=== PATIENT | male | born 1950 | race Caucasian/White ===

== ENCOUNTER 2022-08-14 09:29 | Inpatient (IN) | payer OTHER ==
--- OUTSIDE RECORDS SUMMARY | 2022-08-14 09:32 | XMS REPORT | Continuity of Care Document ---
:1950 Author Organization [facility] t Address [address] [place] [address] Care Team Providers Name Role Phone Asked, No Pcp Primary Care Physician Unavailable Ayad Vazquez Attending Clinician Unavailable Mir Pascal Attending Clinician Unavailable Shoaib Riddle Attending Clinician Unavailable JESSIE SINGLETON Attending Clinician Unavailable Physician, No Primary or Family Admitting Clinician UnavailFernando Valle Admitting Clinician Unavailable BETY VAUGHN Admitting Clinician Unavailable Payers Payer Name Policy Type Policy Number Effective Date Expiration Date S ource Problems Condition Condition Condition Status Onset Resolution Last Treating Co mments Source Name Details Category Date Date Treatment Clinician Date Increased Increased Disease Active Met hodi frequency frequency 05 st of of 00:00: Hospita urination urination 00 l Transient Transient Disease Active Met hodi elevated elevated [address] [facility] blood blood 00:00: Hospita pressure pressure 00 l Chest pain Chest pain Disease Active 2019- M ethodi at rest at rest 104 st 00:00: Hospita 00 l Status Status Disease Active Methodi epilepticu epilepticu 1 st s s 00:00: Hospita 00 l Acute Acute Disease Recurre Methodi respirator respirator nce 07-17 st y failure y failure 00:00: Hosp rui with with 00 l hypoxia hypoxia 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 07-17 st megaly megaly 00:00: Hospita 00 l Allergies, Adverse Reactions, Alerts Allergy Allergy Status Severity Reaction(s) Onset Inactive Treating Comm ents Source Name Type Date Date Clinician peter DA Active U UNKNOWN [facility] ep[facility] 08-10 [facility] 00:[facility]: [facility] 00 are [facility] No Known DA Active U [facility] Allergie 12-05 [facility] 00:00: e 00 [facility] No Known DA Active U [facility] Allergie - [facility] 00[facility]: e 00 [facility] Social History Social Habit Start Date Stop Date Quantity Comments Source Sex Assigned At [birth year] [facility] 00:00:00 00:00:00 Smoking Status Start Date Stop Date Source Tobacco smoking consumption unknown [facility] Medications Ordered Filled Start Stop Current Ordering Indication Dosage Frequency Signature Comments Components Source Medication Medication Date Date Medication? Clinician (SIG) Name Name No known No No known Metho di medications 07-[address] 03:55: s Hospita 54 l Procedures This patient has no known procedures. Plan of Care Planned Activity Planned Date Details Comments Source Future Scheduled 2022-06-29 COVID-19 VACCINE (#1) [facility] Test 10:37:52 [code = COVID-19 VACCINE (#1)] Future Scheduled 2022-06-29 Hepatitis C screening [facility] Test 10:37:52 (procedure) [code = 648083838] Future Scheduled 2022-06-29 COLONOSCOPY SCREENING [facility] Test 10:37:52 [code = COLONOSCOPY SCREENING] Future Scheduled 2022-06-29 SHINGLES VACCINES (1 Met [facility] Test 10:37:52 of 2) [code = SHINGLES VACCINES (1 of 2)] Future Scheduled 2022-06-29 65+ [facility]CCAL [facility] Test 10:37:52 VACCINE (1 - PCV) [code = 65+ PNEUMOCOCCAL VACCINE (1 - PCV)] Future Scheduled 2022-06-29 INFLUENZA VACCINE Method [facility] Test 10:37:52 [code = INFLUENZA VACCINE] Encounters Start End Encounter Admission Attending Care Care Encounter Source Date/Time Date/Time Type Type Clinicians Facility Department ID 2022-02-12 2022-02-12 Emergency EM Ayad Vazquez [facility] KALPESH [id number] [facility] 07:23:00 13:20:00 60 [facility] 2022-02-12 2022-02-12 Emergency EM Ayad Vazquez HCABM [id number] [facility] 07:23:00 07:23:00 [id number] [facility] 2022-02-08 2022-02-11 Emergency EM Gwyn, HCATB KALPESH [id number] [facility] 19:34:00 22:57:00 Mir 91 [facility] [place] 2022-02-08 2022-02-11 Emergency EM Gwyn HCATB HCATB [id number] [facility] 19:34:00 22:57:00 Mir [id number] [facility] [place] 2022-02-09 2022-02-09 Outpatient Gwyn HCANW REF [id number] [facility] 09:29:00 09:29:00 Mir 48 [facility] 2021-08-10 2021-08-10 Emergency EM Janessa HCATB KALPESH [id number] [facility] 12:30:00 17:49:00 Shoaib 89 [facility] [place] 2019-07-16 2019-07-22 Inpatient ARELI [facility] [id number] [address] [place] 00:00:00 00:00:00 JESSIE [address] Results Test Description Test Time Test Comments Results Result Comments Source BASIC METABOLIC PANEL 2022-02-12 11:42:00 Test Item Value Reference Range Interpretation Comme nts SODIUM (test code = NA) 136 mmol/L 136-145 N POTASSIUM (test code = K) 4.1 mmol/L 3.5-5.1 N CHLORIDE (test code = CL) 102.0 mmol/L 98-107 N CARBON DIOXIDE (test code = 27.0 mmol/L 21-32 N CO2) ANION GAP (test code = GAP) 11.1 10-20 N GLUCOSE (test code = GLU) 104 mg/dL 74-106 N BLOOD UREA NITROGEN (test 19 mg/dL 7-18 H code = BUN) GLOMERULAR FILTRATION RATE > 60 mL/min See_Comment E stimated GFR by using (test code = GFR) Modified M DRD formula.Chronic kidney disease is defined as either kidney d amageor GFR <60 mL/min/1.73 m2 for >3 months. [Automa abisai message] The system [employer] generated this result tra nsmitted reference range : >=60. The reference range was not used to interpret th is result as normal/abnormal . CREATININE (test code = 0.80 mg/dL 0.7-1.3 N CREAT) BUN/CREATININE RATIO (test 22.9 10-20 H code = BUN/CREA) CALCIUM (test code = CA) 9.7 mg/dL 8.5-10.1 N [id number] 11:42:00 Test Item Value Reference Range Interpretation Comments TROPONIN-HS (test 7.590 pg/mL 0-45 N CAUTION: U nits of the code = TROPI) current test m ethodology (pg/mL)differ f rom the prior test meth odology (ng/mL) by a fa ctorof 1000. PROTHROMBIN [id number] 11:32:00 Test Item Value Reference Range Interpretation Comments PROTHROMBIN TIME 11.6 seconds 9.0-14.0 N PATIENT (test code = PTP) INTERNATIONAL NORMAL 1.0 0.8-1.2 N The the rapeutic range RATIO (test code = for oral INR) anticoagulant t herapy formost indicat ions is an internati onal normalized rati o (INR)of between 2.0 and 3.0. The recommended therapeutic INR range for various cli nical situations is l isted below: Clinical Situat ion INR range Pulmonary embol ism treatment (2.0-3.0)Venous thrombosis treatmentVenous thrombosis prophylaxis (hi gh risk surgery)Prevent ion of systemic emboli sm from: Acute myocardial infa rction Valvular heart disease Atrial fibrillation Mechanical pros thetic heart valves (2.5-3.5) IS PATIENT ON ANTICOAGULANTS? NTHROMBOPLASTIN TIME [id number] 11:32:00 Test Item Value Reference Range Interpretation Comments THROMBOPLASTIN TIME PARTIAL 32.1 seconds 23.0-37.0 N (test code = PTT) IS PATIENT ON ANTICOAGULANTS? NCBC W/O [id number] 11:28:00 Test Item Value Reference Range Interpretation Comments WHITE BLOOD CELL (test code = 10.2 K/mm3 4.5-12.5 N WBC) RED BLOOD CELL (test code = 5.04 mill/mm3 4.0-5.8 N RBC) HEMOGLOBIN (test code = HGB) 14.9 gram/dL 13.0-17.5 N HEMATOCRIT (test code = HCT) 44.6 % 42.0-52.0 N MEAN CELL VOLUME (test code = 88.5 fL 80-98 N MCV) MEAN CELL HGB (test code = MCH) 29.6 picogram 27.0-33.0 N MEAN CELL HGB CONCETRATION 33.4 gram/dL 33.0-36.0 N (test code = MCHC) RED CELL DISTRIBUTION WIDTH 13.5 % 11.6-16.2 N (test code = RDW) PLATELET COUNT (test code = 163 K/mm3 150-450 N PLT) MEAN PLATELET VOLUME (test code 9.5 fL 6.7-11.0 N = MPV) - CT C-SPINE W/O [id number] 09:00:00 [facility]Name: MCCLENDONISABEL : 1950 Sex: M Name: ISABEL MCCLENDON [facility] : 1950 Age/S: 71 / M [address] Unit #: [id number] Loc: [place] [address] Phys: Ayad Vazquez MD Acct: [id number] Dis Date: Status: REG ER PHONE #: [phone] Exam Date: 02/12/2022839 FAX #: [phone] Reason: fall EXAMS: CPT CODE: [id number] CT C-SPINE W/O CONTRAST 18275 HISTORY: Seizure TECHNIQUE: Noncontrast 2.[address] of the head.2.[address] of the cervical spine. Sagittal and coronal reformatted images were generated. . Examination acquired within 24 hours of arrival. Automated exposure control for dose reduction. COMPARISON: None FINDINGS: HEAD CT: No lacerations or contusions of the scalp or facial soft tissues. Calvarium and skull base are intact. 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 No effacement of the sulci o r huertas-white matter interface. No acute hemorrhage. No intracranial mass, mass effect, or midline shift. Severe low densities appearance of the paraventricular region noted consistent with nonspecific white matter disease. No hydrocephalus.. No extra-axial fluid collection. Visualized paranasal sinuses are clear. Mastoid air cells and middle ear cavities are clear. Orbital contents are unremarkable. CERVICAL SPINE CT: No acute fracture of the cervical spine. No subluxation. Craniocervical and cervicothoracic articulations are appropriate. Vertebral body heights are preserved. Mild to moderate scattered degenerative changes of the cervical spine. No prevertebral or paraspinal soft tissue abnormality. Visualized posterior fossa contents are grossly unremarkable. Lung apices are clear. IMPRESSION: No acute abnormalities of the head or cervical spine. Location: [facility] PAGE 1 Signed Report (CONTINUED) Name: ISABEL MCCLENDON [facility] : 1950 Age/S: 71 / M [address] Unit #: [id number] Loc: [place] [address] Phys: Ayad Vazquez MD Acct: [id number] Dis Date: Status: REG ER PHONE #: [phone] Exam Date: 02/12/2022 0840 FAX #: [phone] Reason: fall EXAMS: CPT CODE: [id number] CT C-SPINE W/O CONTRAST 48124 (Continued) at 0900 Reported and signed by: Justus Chairez M.D. CC: Ayad Vazquez MD Technologist:Prerna Bloom RT(R)(CT) CTDI: DLP: Trnscb Date/Time: 02/12/2022 (09) [email or web address] Orig Print D/T: S: 02/12/2022 (0904)PAGE 2 Signed Report- CT HEAD/BRAIN W/O [id number] 09:00:00 [facility]Name: ISABEL MCCLENDON : 1950 Sex: M Name: SIABEL MCCLENDON [facility] : 1950 Age/S: 71 / M [address] [facility] Unit #: [id number] Loc: [place] [address] Phys: Ayad Vazquez MD Acct: [id number] Dis Date: Status: REG ER PHONE #:[phone] Exam Date: 02/12/2022 0840 FAX #: [phone] Reason: Seizure EXAMS: CPT CODE: [id number] CT HEAD/BRAIN W/O CONT 01821 HISTORY: Seizure TECHNIQUE: Noncontrast 2.[address] of the head. 2.[address] of the cervical spine. Sagittal and coronal reformatted images were generated. . Examination acquired within 24 hours of arrival. Automated exposure control for dose reduction. COMPARISON: None FINDINGS: HEAD CT: No lacerations or contusions of the scalp or facial soft tissues. Calvarium and skull base are intact. 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 No effacement of the sulcior huertas-white matter interface. No acute hemorrhage. No intracranial mass, mass effect, or midline shift. Severe low densities appearance of the paraventricular region noted consistent with nonspecificwhite matter disease. No hydrocephalus.. No extra-axial fluid collection. Visualized paranasal sinuses are clear. Mastoid air cells and middle ear cavities are clear. Orbital contents are unremarkable. CERVICAL SPINE CT: No acute fracture of the cervical spine. No subluxation. Craniocervical and cervicothoracic articulations are appropriate. Vertebral body heights are preserved. Mild to moderate scattered degenerative changes of the cervical spine. No prevertebral or paraspinal soft tissue abnormality. Visualized posterior fossa contents are grossly unremarkable. Lung apices are clear. IMPRESSION: No acute abnormalities of the head or cervical spine. Location: [facility] PAGE 1 Signed Report (CONTINUED) Name: ISABEL MCCLENDON [facility] : 1950 Age/S: 71 / M [address] [facility] Unit #: [id number] Loc: [place] [address] Phys: Ayad Vazquez MD Acct: [id number] Dis Date: Status: REG ER PHONE #: [phone] Exam Date: 02/12/2022 0840 FAX #: [phone] Reason: Seizure EXAMS: CPT CODE: [id number] CT HEAD/BRAIN W/O CONT 79666 (Continued) [id number] Reported and signed by: Justus Chairez M.D. CC: Ayad Vazquez MD Technologist:Prerna Bloom RT(R)(CT) CTDI: DLP: Trnscb Date/Time: 02/12/2022 (899) [email or web address] Orig Print D/T: S: 02/12/2022 (903) PAGE 2 Signed ReportCOVID 19 Asymptomatic IH AG 2022-02-10 12:25:00 Test Item Value Reference Range Interpretation Comments COVID 19 Asymptomatic NEGATIVE Negative NEGAT MARLY RESULTS IH AG (test code = SHOULD BE TREATED COVNONPUIAG) PRESUMPTIVE ANDCONFIRMED WT IH A MOLECULAR ASSAY , IF NECESSARY FOR PATIENTMANAGEME NT. NEGATIVE RESULT S DO NOT RULE OUT CO VID-19 ANDSHOULD NOT B E USED THE SOLE BAS IS FOR TREATMENT ORPAT IENT MANAGEMENT DECI SIONS, INCLUDING INFEC TION CONTROLDECISION S. NEGATIVE RESULT S SHOULD BE CONSI DERED IN THECONTEXT O F A PATIENT'S RECEN T EXPOSURES, HIST ORY AND THEPRESENCE OF CLINICAL SIGNS AND SYMPTOMS CONSIS TENT WITHCOVID-19. DRUGS OF ABUSE SCREEN [id number] 00:00:00 Test Item Value Reference Range Interpretation Comments UR COCAINE (test code = COCAU) Negative NEGATIVE UR CANABINOIDS (test code = CANU) Negative NEGATIVE UR AMPHETAMINE (test code = AMPHU) Negative NEGATIVE UR BARBITURATE (test code = BARBQLU) Negative NEGATIVE UR BENZODIAZEPINE (test code = Negative NEGATIVE BENZU) METHADONE (test code = METHDU) Negative NEGATIVE PROPOXYPHENE SCREEN (test code = Negative NEGATIVE PROPXSQ) UR OPIATES QUAL (test code = Negative NEGATIVE OPIAQLU) OXYCODONE (test code = OXYCOD) Negative NEGATIVE UR PHENCYCLIDINE (PCP) (test code = Negative NEGATIVE PHENCU) UA RFLX MICR CULT IF [id number] 23:50:00 Test Item Value Reference Range Interpretation Comments UA COLOR (test code = Light-Yellow YELLOW COLU) UA APPEARANCE (test TURBID CLEAR A code = APPU) UA GLUCOSE DIPSTICK NEG MG/DL NEGATIVE (test code = DGLUU) UA BILIRUBIN DIPSTICK NEG NEGATIVE (test code = BILU) UA KETONE DIPSTICK NEG MG/DL NEGATIVE (test code = KETU) UA SPECIFIC GRAVITY 1.014 1.000-1.030 (test code = SGU) UA BLOOD DIPSTICK NEG NEGATIVE (test code = ESTHELA) UA PH DIPSTICK (test 7.0 4.5-8.5 code = MAMTA) UA PROTEIN DIPSTICK NEG MG/DL NEGATIVE (test code = PROU) UA UROBILINOGEN 2.0 EU/dL See_Comment A [Automated message] DIPSTICK (test code = The sy stem which URO) generated this result transmit abisai reference range : <=1.0. The refe rence range was not u sed to interpret th is result as normal/abnormal . UA NITRITE DIPSTICK POSITIVE NEGATIVE A (test code = ALEKSANDR) UA LEUKOCYTE ESTERASE 3+ NEGATIVE A DIPSTICK (test code = LEUU) UA WBC (test code = >100 /HPF 0-3 A WBCU) UA RBC (test code = 3-5 /HPF 0-3 A RBCU) UA WBC CLUMPS (test FEW HPF NONE SEEN A code = WBCUCL) UA BACTERIA (test 4+ /HPF NONE SEEN A code = BACU) UA SQUAMOUS CELLS RARE /HPF NONE-FEW (test code = SQU) UA MUCUS (test code = RARE /LPF NONE-FEW MUCU) Indication for culture: Flank PainSpecimen Description: CLEAN CATCHVALPROIC ACID (DEPAKENE)2022-02-08 22:43:00 Test Item Value Reference Range Interpretation Comments VALPROIC ACID (DEPAKENE) (test 67.3 ug/mL 50.0-100.0 N code = VALP) COMPREHENSIVE METABOLIC [id number] 22:43:00 Test Item Value Reference Range Interpretation Comments SODIUM (test code = 141 mmol/L 136-145 N NA) POTASSIUM (test 4.2 mmol/L 3.4-4.5 N code = K) CHLORIDE (test code 104 mmol/L 98-107 N = CL) CARBON DIOXIDE 31 mmol/l 20-31 N (test code = CO2) GLUCOSE (test code 98 mg/dL 74-106 N = GLU) BLOOD UREA NITROGEN 19 mg/dL 9-23 (test code = BUN) GLOMERULAR >=60 max >60 The estimated FILTRATION RATE estimate glomerular (test code = GFR) filtration rate is computed usingpatient ra ce, age (>18), sex, and serum creatinin e. If anyof the ne eded data elements a re missing the Laboratory negro ot compute an estimation of t he glomerular filtration rate . CREATININE (test 0.92 mg/dL 0.70-1.30 N code = CREAT) TOTAL PROTEIN (test 6.6 g/dL 5.7-8.2 N code = PROT) ALBUMIN (test code 3.3 g/dl 3.4-5.0 L = ALB) CALCIUM (test code 9.4 mg/dL 8.6-10.3 N = CA) BILIRUBIN TOTAL 0.3 mg/dL 0.2-1.1 N (test code = BILT) SGOT/AST (test code < 8 U/L 0-34 N = AST) SGPT/ALT (test code < 7 U/L 10-49 L = ALT) ALKALINE 72 U/L 46-116 N PHOSPHATASE (test code = ALKP) [id number] 22:43:00 Test Item Value Reference Range Interpretation Comments ACETAMINOPHEN (test code = ACET) < 2.0 ug/mL 10-20 L [id number] 22:43:00 Test Item Value Reference Range Interpretation Comments SALICYLATE (test code = ZAN) < 3.0 mg/dL 0.0-30.0 N [id number] 22:43:00 Test Item Value Reference Range Interpretation Comments ALCOHOL (test code = ALC) < 3.0 mg/dL 0.0-80.0 N CBC W/AUTO [id number] 22:22:00 Test Item Value Reference Range Interpretation Comments WHITE BLOOD CELL (test code = WBC) 8.28 K/mm3 5.0-12.0 N RED BLOOD CELL (test code = RBC) 4.26 M/mm3 4.70-6.10 L HEMOGLOBIN (test code = HGB) 12.8 G/DL 14.0-18.0 L HEMATOCRIT (test code = HCT) 38.9 % 38.8-50.0 N MEAN CELL VOLUME (test code = MCV) 91 fL 80-94 N MEAN CELL HGB (test code = MCH) 30.0 PGM 27-31 N MEAN CELL HGB CONCENTRATION (test 32.9 G/DL 33-37 L code = MCHC) RED CELL DISTRIBUTION WIDTH (test 13.6 % 11.6-16.2 N code = RDW) PLATELET COUNT (test code = PLT) 148 K/mm3 130-400 N MEAN PLATELET VOLUME (test code = 9.7 fl 7.4-10.4 N MPV) NEUTROPHIL % (test code = NT%) 63.3 % 43-65 N IMMATURE GRANULOCYTE % (test code 0.4 % 0.0-2.0 N = IG%) LYMPHOCYTE % (test code = LY%) 23.4 % 20.5-45.5 N MONOCYTE % (test code = MO%) 11.6 % 5.5-11.7 N EOSINOPHIL % (test code = EO%) 0.7 % 0.9-2.9 L BASOPHIL % (test code = BA%) 0.6 % 0.2-1.0 N NUCLEATED RBC % (test code = 0.0 % 0-1.0 N NRBC%) NEUTROPHIL # (test code = NT#) 5.24 K/mm3 2.2-4.8 H LYMPHOCYTE # (test code = LY#) 1.94 K/mm3 1.3-2.9 N MONOCYTE # (test code = MO#) 0.96 K/mm3 0.3-0.8 H EOSINOPHIL # (test code = EO#) 0.06 K/MM3 0.0-0.2 N BASOPHIL # (test code = BA#) 0.05 K/mm3 0.0-0.1 N - XR CHEST 1 [id number] 14:02:00 [facility] 1950 Sex: MPatient Name: ISABEL MCCLENDON Unit No: [id number] EXAMS: CPT: [id number] XR CHEST 1 V 54728 CHEST 1 view HISTORY PROVIDED: Cough, hypoxia, bradycardia COMPARISON: No previous chest imaging available for review FINDINGS: Monitoring electrodes are superimposed on the chest. The lungs are clear and fully expanded. There is no infiltrate or atelectasis. The cardiomediastinal silhouette is normal. The heart size isnormal. The pulmonary vascular pattern is not congested. There is no pleural effusion. There is no pneumothorax. CONCLUSION: Normal exam at 1402 Reported and signed by: Milton Gamboa MD CC: Shoaib Riddle DO Technologist: Emilia Sanchez Fluoro Time: DAP (Gy m2): Air Kerma (mGy): Trscr Dt/Tm: 08/10/2021 (1402) by:Nicholas Orig Print D/T: S: 08/10/2021 (1406) BATCH NO: N/A Name: ISABEL MCCLENDON [facility] [place] Phys: Shoaib Gallardo DO [address] : 1950 Age: 71 Sex: M [place] Loc: T.ERS Exam Date: 08/10/2021 Status: REG ER PH: FAX: PAGE 1 Signed ReportBASIC METABOLIC [id number] 13:48:00 Test Item Value Reference Range Interpretation Comments SODIUM (test code 146 mmol/L 136-145 H = NA) POTASSIUM (test 3.4 mmol/L 3.4-4.5 N code = K) CHLORIDE (test 108 mmol/L 98-107 H code = CL) CARBON DIOXIDE 32 mmol/l 20-31 H (test code = CO2) GLUCOSE (test code 163 mg/dL 74-106 H = GLU) BLOOD UREA 26 mg/dL 9-23 H NITROGEN (test code = BUN) GLOMERULAR >=60 max >60 The estimated FILTRATION RATE estimate glomerular (test code = GFR) filtration rate is computed usingpatient ra ce, age (>18), sex, and serum creatinin e. If anyof the neede d data elements a re missing the Laboratory negro ot compute an estimation of t he glomerular filtration rate . CREATININE (test 0.93 mg/dL 0.70-1.30 N code = CREAT) CALCIUM (test code 10.2 mg/dL 8.6-10.3 N = CA) Coronavirus 2018 nCoV [id number] 13:42:00 Test Item Value Reference Range Interpretation Comments Coronavirus 2018 Negative NEGATIVE THE ID NOW COVID-19 EUA HAS nCoV Bedside (test NOT BEEN FDA CLEARED code = ORAPPROVED. IT HAS BEEN [id number]) AUTHORIZED BY THE FDA UNDER ANEMERGENCY USE AUTHORIZATION F OR USE BY AUTHORIZEDLABOR ATORIES AND PATIENT CARE SE TTINGS. THE TEST HAS BEENAU THORIZED ONLY FOR THE DETECTI ON OF NUCLEIC ACID FROMSARS-C oV-2, NOT FOR ANY OTHER VIRUS ES OR PATHOGENS, AND ISONLY AUTHORIZED FOR THE DURATION OF THE DECLARAT ION THATCIRCUMSTANC ES EXIST JUSTIFYING THE AUTHORIZATION OFEMERGENCY USE OF IN VITRO DIAGNOSTIC TEST S FOR DETECTIONAND/OR DIAGNOSIS OF COVID-19 UNDER SECTION 564(B)(1) OF [facility], [place] 360bbb-3 (b)(1), UNLESS THE AUTH ORIZATION ISTERMINATED OR REVOKED SOONER.Negative results should be treat ed as presumptive and , ifinconsistent with clinical signs and sympt oms or necessaryfor pa tient managmeent, osvaldo uld be tested with differenta uthorizd or cleared molecul ar tests. Negative result s donot preclude SARS-C ov-2 infection and s hould not be used asthe sole basis for patient managem ent decisions. Nega tiveresults should be consi dered in the context of a pa tient'srecent exposures, hist ory and presence of cli nical signs andsymptons con sistent with COVID-19. CBC W/AUTO [id number] 13:36:00 Test Item Value Reference Range Interpretation Comments WHITE BLOOD CELL (test code = WBC) 5.67 K/mm3 5.0-12.0 N RED BLOOD CELL (test code = RBC) 4.57 M/mm3 4.70-6.10 L HEMOGLOBIN (test code = HGB) 14.1 G/DL 14.0-18.0 N HEMATOCRIT (test code = HCT) 42.0 % 38.8-50.0 N MEAN CELL VOLUME (test code = MCV) 92 fL 80-94 N MEAN CELL HGB (test code = MCH) 30.9 PGM 27-31 N MEAN CELL HGB CONCENTRATION (test 33.6 G/DL 33-37 N code = MCHC) RED CELL DISTRIBUTION WIDTH (test 12.7 % 11.6-16.2 N code = RDW) PLATELET COUNT (test code = PLT) 201 K/mm3 130-400 N MEAN PLATELET VOLUME (test code = 9.7 fl 7.4-10.4 N MPV) NEUTROPHIL % (test code = NT%) 75.6 % 43-65 H IMMATURE GRANULOCYTE % (test code 1.8 % 0.0-2.0 N = IG%) LYMPHOCYTE % (test code = LY%) 18.0 % 20.5-45.5 L MONOCYTE % (test code = MO%) 3.7 % 5.5-11.7 L EOSINOPHIL % (test code = EO%) 0.2 % 0.9-2.9 L BASOPHIL % (test code = BA%) 0.7 % 0.2-1.0 N NUCLEATED RBC % (test code = 0.0 % 0-1.0 N NRBC%) NEUTROPHIL # (test code = NT#) 4.29 K/mm3 2.2-4.8 N LYMPHOCYTE # (test code = LY#) 1.02 K/mm3 1.3-2.9 L MONOCYTE # (test code = MO#) 0.21 K/mm3 0.3-0.8 L EOSINOPHIL # (test code = EO#) 0.01 K/MM3 0.0-0.2 N BASOPHIL # (test code = BA#) 0.04 K/mm3 0.0-0.1 N
[2022-08-14 09:52] LABS: Urine Blood Trace-intact (Negative); Urine Glucose Negative (Negative); Urine Protein Trace (Negative); Urine Specific Gravity 1.025 (1.005-1.030); Urine pH 6.5 (5.0-7.0)
[2022-08-14 10:02] LABS: Urine Bacteria <20 /HPF (<20); Urine Mucus Slight /HPF (None Seen); Urine WBC Clump Rare /HPF (None Seen)
[2022-08-14 10:10] LABS: Absolute Lymphocytes (CBC) 1.6 K/uL (0.7-4.9); Hematocrit 36.8 % (39.6-49.0); Lymphocytes % 25.3 % (15.3-44.8); MCV 88.6 fL (80-100); RBC Red Blood Cell Count 4.15 M/uL (4.33-5.43)
[2022-08-14 10:30] LABS: Albumin 2.5 g/dL (3.4-5.0); Bilirubin Total 0.3 mg/dL (0.2-1.0); Potassium 3.6 mmol/L (3.5-5.1); Protein, Total 7.6 g/dL (6.4-8.2)
[2022-08-14 10:31] LABS: SARS-COV-2 RT PCR NEGATIVE (NEGATIVE)
--- NOTE | 2022-08-14 10:48 | RAD REPORT ---
EXAM DESCRIPTION: RAD - Chest Single View - 08/14/2022 10:35 am CLINICAL HISTORY: hypoxia Chest pain. COMPARISON: No comparisons FINDINGS: Portable technique limits examination quality. The lungs are mildly emphysematous but grossly clear. The heart is normal in size. No displaced fract ures. IMPRESSION: No acute intrathoracic process suspected.
[2022-08-14 10:53] LABS: Protime INR 1.08
[2022-08-14] MEDS ORDERED: CEFTRIAXONE 1000 MG/VIAL ONE (10:59)
--- NOTE | 2022-08-14 11:33 | RAD REPORT ---
EXAM DESCRIPTION: CT - Chest For Pe Angio - 08/14/2022 11:18 am CLINICAL HISTORY: Chest pain. hypoxemia, rule out PE COMPARISON: No comparisons TECHNIQUE: CT angiogram of the pulmonary arteries was performed with MIP. All CT scans are performed using dose optimization technique as appropriate and may include automated exposure control or mA/KV adjustment according to patient size. FINDINGS: No evidence of pulmonary thromboembolism. No acute aortic finding demonstrated. Mild COPD is present with atelectasis in both posterior lung bases. No significant pericardial or pleural fluid. No concerning bony finding. IMPRESSION: No evidence of pulmonary thromboembolism. Mild COPD with atelectasis in both lung bases.
--- NOTE | 2022-08-14 12:01 | ER ---
Nurse's Notes [facility] Name: Marcus Woodruff Age: 72 yrs Sex: Male : 1950 Arrival Date: 08/14/2022 Time: 09:32 Bed 18 Private MD: Diagnosis: UTI/ Urinary tract infection, site not specified;Hypoxemia Presentation: 08/14 10:02 Chief complaint: EMS states: toned out to [facility] for low O2 - upon arrival ld1 to encino, patient SpO2 87% on concentrator. Upon arrival to ER pt was 98% on 6L NC. Coronavirus screen: At this time, the client does not indicate any symptoms associated with coronavirus-19. Ebola Screen: No symptoms or risks identified at this time. Initial Sepsis Screen: Does the patient meet any 2 criteria? No. Patient's initial sepsis screen is negative. Does the patient have a suspected source of infection? No. Patient's initial sepsis screen is negative. Risk Assessment: Do you want to hurt yourself or someone else? Patient reports no desire to harm self or others. Onset of symptoms was August 14, 2022 at 10:05. 10:02 Method Of Arrival: EMS: [facility] ld1 10:02 Acuity: OLYA 3 ld1 Triage Assessment: 10:05 General: Appears in no apparent distress. comfortable, Behavior is calm, cooperative, ld1 appropriate for age. Pain: Denies pain. EENT: No signs and/or symptoms were reported regarding the EENT system. Neuro: Level of Consciousness is awake, alert, obeys commands, Oriented to person. Cardiovascular: Capillary refill < 3 seconds Patient's skin is warm and dry. Rhythm is sinus rhythm. Respiratory: Reports shortness of breath Airway is patent Respiratory effort is even, unlabored, Onset: The symptoms/episode began/occurred 3-4 days ago, the patient has mild shortness of breath. GI: Abdomen is round non-distended. : No signs and/or symptoms were reported regarding the genitourinary system. Derm: No signs and/or symptoms reported regarding the dermatologic system. Musculoskeletal: No signs and/or symptoms reported regarding the musculoskeletal system. Historical: - Allergies: 10:05 Trileptal; ld1 - Home Meds: 10:05 citalopram 20 mg tab 1 tab once daily [Active]; divalproex 500 mg oral Tb24 1 tab once ld1 daily [Active]; lactulose 10 gram/15 mL (15 mL) Oral soln [Active]; levetiracetam 500 mg oral Tb24 1 tab once daily [Active]; levothyroxine 50 mcg cap 1 cap once daily [Active]; montelukast 10 mg oral tab [Active]; omeprazole 20 mg Oral cpDR 1 cap once daily [Active]; - PMHx: 10:05 CVA; GERD; Schizophrenia; Dementia; Hypothyroidism; Depressive disorder; Seizure; TBI; ld1 - Immunization history:: Adult Immunizations up to date, Client reports receiving the 2nd dose of the Covid vaccine. - Social history:: Smoking status: Patient denies any tobacco usage or history of. Patient/guardian denies using alcohol. - Family history:: not pertinent. - Hospitalizations: : No recent hospitalization is reported. Screenin:11 [facility] ED Fall Risk Assessment (Adult) History of falling in the last 3 months, ld1 including since admission No falls in past 3 months (0 pts). Abuse screen: Denies threats or abuse. Denies injuries from another. Nutritional screening: No deficits noted. Tuberculosis screening: No symptoms or risk factors identified. Assessment: 10:11 Reassessment: See triage assessment. Received pt from EMS - soiled. Changed linen and ld1 clean patient of incontinence. Cardiovascular: Capillary refill < 3 seconds Patient's skin is warm and dry. Respiratory: Airway is patent Respiratory effort is even, unlabored, Breath sounds are clear bilaterally. 10:11 Cardiovascular: Rhythm is sinus rhythm. ld1 18:25 Reassessment: patient brief changed x 2 nurse. db Vital Signs: 10:02 BP 129 / 67; Pulse 60; Resp 18; Temp 97.7(O); Pulse Ox 95% on 6 lpm NC; Weight 82 kg; ld1 Height 5 ft. 8 in. (172.72 cm); Pain 0/10; 10:47 BP 111 / 77; Pulse 62; Resp 18; Pulse Ox 95% on 6 lpm NC; Pain 0/10; ld1 11:42 BP 115 / 75; Pulse 57; Resp 18; Pulse Ox 94% on 6 lpm NC; ld1 12:55 BP 92 / 60; Pulse 73; Resp 20; Pulse Ox 100% on Nebulizer Mask; ld1 15:10 BP 117 / 69; Pulse 65; Resp 30; Pulse Ox 94% on 2 lpm NC; ld1 17:13 BP 115 / 61; Pulse 60; Resp 28; Pulse Ox 99% on 3 lpm NC; ld1 17:59 BP 147 / 73; Pulse 66; Resp 18; Pulse Ox 97% on 2 lpm NC; ld1 10:02 Body Mass Index 27.49 (82.00 kg, 172.72 cm) ld1 ED Course: 09:32 Patient arrived in ED. ld1 09:32 Andrés Garcia MD is Attending Physician. rn 10:02 Urine Culture Sent. ld1 10:02 Urine Microscopic Only Sent. ld1 10:02 Blood Culture Adult (2) Sent. ld1 10:02 COVID-19/FLU A+B Sent. ld1 10:05 Triage completed. ld1 10:05 Arm band placed on right wrist. ld1 10:11 No provider procedures requiring assistance completed. Inserted saline lock: 20 gauge ld1 in right forearm, using aseptic technique. Blood collected. 10:11 Patient has correct armband on for positive identification. Placed in gown. Bed in low ld1 position. Call light in reach. Side rails up X2. monitor car operator on. Pulse ox on. NIBP on. Door closed. Noise minimized. Warm blanket given. Cleaned of incontinence. Linen changed. 10:37 Chest Single View XRAY In Process Unspecified. EDMS 10:47 Madelaine Stewart, ANEUDY is Primary Nurse. ld1 11:20 CT Chest For PE Angio In Process Unspecified. EDMS 11:41 Cleaned of incontinence. Linen changed. ld1 12:00 Robert Perla MD is Hospitalizing Provider. rn 12:21 Zheng Torres is Hospitalizing Provider. rn 18:17 Patient admitted, IV remains in place. ld1 Administered Medications: 10:58 Drug: Rocephin (cefTRIAXone) 1 grams Route: IV; Rate: calculated rate; Site: right ld1 forearm; 12:53 Follow up: Response: No adverse reaction ld1 12:40 Drug: Xopenex (levalbuterol) 1.25 mg Route: Inhalation; ld1 12:53 Follow up: Response: No adverse reaction ld1 Medication: 10:11 VIS not applicable for this client. ld1 Outcome: 12:00 Decision to Hospitalize by Provider. rn 18:16 Admitted to Med/surg accompanied by tech, via stretcher, room 420, with chart, Report ld1 called to ANEUDY Jacques 18:16 Condition: stable 18:16 Instructed on the need for admit. 18:26 Patient left the ED. ld1 Signatures: Dispatcher [employer] EDAndrés Gillis MD MD rn Dibbern, Lauren, RN RN ld1 Raine Landa RN RN db
--- NOTE | 2022-08-14 12:01 | EDPHYS ---
Physician Documentation [facility] Name: Marcus Woodruff Age: 72 yrs Sex: Male : 1950 Arrival Date: 08/14/2022 Time: 09:32 Bed 18 Private MD: ED Physician Andrés Garcia HPI: 08/14 09:43 This 72 yrs old Male presents to ER via Unassigned with complaints of Shortness Of rn Breath. 09:43 The patient has shortness of breath at rest. Onset: The symptoms/episode began/occurred rn at an unknown time. Duration: The symptoms are continuous. The patient's shortness of breath is aggravated by nothing, is alleviated by application of supplemental oxygen. Associated signs and symptoms: Pertinent positives: fever, Pertinent negatives: hemoptysis, vomiting. Severity of symptoms: At their worst the symptoms were mild in the emergency department the symptoms are unchanged. It is unknown whether or not the patient has had similar symptoms in the past. The patient has not recently seen a physician. Pt [facility] by EMS[facility] for [facility] fever, low O2, was 87% on concentrator. Pt with previous TBI and left sided hemiparesis. . Historical: - Allergies: 10:05 Trileptal; ld1 - Home Meds: 10:05 citalopram 20 mg tab 1 tab once daily [Active]; divalproex 500 mg oral Tb24 1 tab once ld1 daily [Active]; lactulose 10 gram/15 mL (15 mL) Oral soln [Active]; levetiracetam 500 mg oral Tb24 1 tab once daily [Active]; levothyroxine 50 mcg cap 1 cap once daily [Active]; montelukast 10 mg oral tab [Active]; omeprazole 20 mg Oral cpDR 1 cap once daily [Active]; - PMHx: 10:05 CVA; GERD; Schizophrenia; Dementia; Hypothyroidism; Depressive disorder; Seizure; TBI; ld1 - Immunization history:: Adult Immunizations up to date, Client reports receiving the 2nd dose of the Covid vaccine. - Social history:: Smoking status: Patient denies any tobacco usage or history of. Patient/guardian denies using alcohol. - Family history:: not pertinent. - Hospitalizations: : No recent hospitalization is reported. ROS: 09:43 Constitutional: Negative for fever, chills, and weight loss, Eyes: Negative for injury, rn pain, redness, and discharge, ENT: Negative for injury, pain, and discharge, Cardiovascular: Negative for chest pain, palpitations, and edema, Respiratory: Negative for wheezing, and pleuritic chest pain, Abdomen/GI: Negative for abdominal pain, nausea, vomiting, diarrhea, and constipation, Back: Negative for injury and pain, MS/Extremity: Negative for injury and deformity, Skin: Negative for injury, rash, and discoloration, Neuro: Negative for headache, numbness, tingling, and seizure. Exam: 09:43 Constitutional: This is a well developed, well nourished patient who is awake, alert, rn and in no acute distress. Head/Face: Normocephalic, atraumatic. ENT: dry MM Cardiovascular: Regular rate and rhythm. No pulse deficits. Respiratory: + diminished breath sounds bilateral bases Abdomen/GI: Soft, non-tender Skin: Warm, dry MS/ Extremity: Pulses equal, no cyanosis. Neuro: Awake and alert, GCS 15 09:57 ECG was reviewed by the Attending Physician. rn Vital Signs: 10:02 BP 129 / 67; Pulse 60; Resp 18; Temp 97.7(O); Pulse Ox 95% on 6 lpm NC; Weight 82 kg; ld1 Height 5 ft. 8 in. (172.72 cm); Pain 0/10; 10:47 BP 111 / 77; Pulse 62; Resp 18; Pulse Ox 95% on 6 lpm NC; Pain 0/10; ld1 11:42 BP 115 / 75; Pulse 57; Resp 18; Pulse Ox 94% on 6 lpm NC; ld1 12:55 BP 92 / 60; Pulse 73; Resp 20; Pulse Ox 100% on Nebulizer Mask; ld1 15:10 BP 117 / 69; Pulse 65; Resp 30; Pulse Ox 94% on 2 lpm NC; ld1 17:13 BP 115 / 61; Pulse 60; Resp 28; Pulse Ox 99% on 3 lpm NC; ld1 17:59 BP 147 / 73; Pulse 66; Resp 18; Pulse Ox 97% on 2 lpm NC; ld1 10:02 Body Mass Index 27.49 (82.00 kg, 172.72 cm) ld1 MDM: 09:33 Patient medically screened. rn 09:57 Differential diagnosis: Anemia Myocardial Infarction pneumonia, Pneumothorax pulmonary rn edema, reactive airway disease, Sepsis. 11:58 Data reviewed: vital signs, nurses notes, lab test result(s), EKG, radiologic studies, rn CT scan, plain films, and as a result, I will admit patient. Consideration of Admission/Observation Patient was admitted/placed on observation. Management of patient was discussed with the following: Hospitalist: Discussed case and admission with hospitalist. . Independent interpretation of the following test(s) in the Emergency Department EKG: See my EKG interpretation above X-Ray: My interpretation is CXR neg for pneumonia. Counseling: I had a detailed discussion with the patient and/or guardian regarding: the historical points, exam findings, and any diagnostic results supporting the discharge/admit diagnosis, lab results, radiology results, the need for further work-up and treatment in the hospital. ED course: Pt with neg CXR and CT PE, could be COPD/emphysema. + UTI. Will admit for IV abx and further care/evaluation.. 08/14 09:33 Order name: Blood Culture Adult (2) rn 08/14 09:33 Order name: CBC with Diff; Complete Time: 10:48 rn 08/14 09:33 Order name: CMP; Complete Time: 10:48 rn 08/14 09:33 Order name: Lactate w/ 2H reflex if indic.; Complete Time: 10:48 rn 08/14 09:33 Order name: Protime (+inr); Complete Time: 10:53 rn 08/14 09:33 Order name: Ptt, Activated; Complete Time: 10:53 rn 08/14 09:33 Order name: Urine Culture rn 08/14 09:33 Order name: Urine Microscopic Only; Complete Time: 10:48 rn 08/14 09:33 Order name: COVID-19/FLU A+B; Complete Time: 10:48 rn 08/14 09:52 Order name: Glucose, Ancillary Testing; Complete Time: 10:48 EDAR 08/14 09:52 Order name: Urine Dipstick-Ancillary; Complete Time: 10:48 EDAR 08/14 13:23 Order name: Magnesium EDMS 08/14 13:23 Order name: Phosphorus EDMS 08/14 13:23 Order name: T4 Free EDMS 08/14 09:33 Order name: Chest Single View XRAY; Complete Time: 10:48 rn 08/14 09:33 Order name: EKG; Complete Time: 09:34 rn 08/14 09:33 Order name: Accucheck; Complete Time: 10:00 rn 08/14 09:33 Order name: Cardiac monitoring; Complete Time: 10:00 rn 08/14 09:33 Order name: Cath; Complete Time: 10:02 rn 08/14 10:54 Order name: CT Chest For PE Angio; Complete Time: 11:38 rn 08/14 13:23 Order name: Heart Healthy EDAR 08/14 13:23 Order name: Thyroid Stimulating Hormone EDAR 08/14 13:23 Order name: Urinalysis EDAR 08/14 13:23 Order name: Basic Metabolic Panel EDAR 08/14 13:23 Order name: Basic Metabolic Panel EDAR 08/14 13:23 Order name: CBC with Automated Diff EDMS 08/14 13:23 Order name: CBC with Automated Diff EDMS 08/14 17:47 Order name: Basic Metabolic Panel EDAR 08/14 09:33 Order name: EKG - Nurse/Tech; Complete Time: 10:00 rn 08/14 09:33 Order name: IV Saline Lock - Large Bore; Complete Time: 10:02 rn 08/14 09:33 Order name: Labs collected and sent; Complete Time: 10:02 rn 08/14 09:33 Order name: O2 Per Protocol; Complete Time: 10:02 rn 08/14 09:33 Order name: O2 Sat Monitoring; Complete Time: 10:02 rn 08/14 09:33 Order name: Urine Dipstick-Ancillary (obtain specimen); Complete Time: 10: rn 08/14 09:33 Order name: Vital Signs; Complete Time: 10:02 rn EC:57 Rate is 66 beats/min. Rhythm is regular. QRS Pedro is Normal. CT interval is normal. QRS rn interval is normal. QT interval is normal. No Q waves. T waves are Normal. No ST changes noted. Clinical impression: Normal ECG. Interpreted by me. Reviewed by me. Administered Medications: 10:58 Drug: Rocephin (cefTRIAXone) 1 grams Route: IV; Rate: calculated rate; Site: right ld1 forearm; 12:53 Follow up: Response: No adverse reaction ld1 12:40 Drug: Xopenex (levalbuterol) 1.25 mg Route: Inhalation; ld1 12:53 Follow up: Response: No adverse reaction ld1 Disposition Summary: 08/14/22 12:00 Hospitalization Ordered Hospitalization Status: Observation rn Location: Telemetry/MedSurg (observation) rn Condition: Stable rn Problem: new rn Symptoms: have improved rn Bed/Room Type: Standard rn Provider: Zheng Torres(08/14/22 12:21) rn Room Assignment: [facility](08/14/22 18:11) bd Diagnosis - UTI/ Urinary tract infection, site not specified rn - Hypoxemia rn Forms: - Medication Reconciliation Form rn - SBAR form rn Signatures: Dispatcher [employer] EDMita Arellano Roman, MD MD rn Dibbern, Lauren, RN RN ld1 Corrections: (The following items were deleted from the chart) 12:21 12:00 Robert Perla rn rn 18:11 12:00 jaylon stapleton
[2022-08-14] MEDS ORDERED: LEVALBUTEROL 1.25 MG/3 ML NEB ONE (12:37)
[2022-08-14] MEDS ORDERED: HYDROCODONE/APAP 5/325 MG TAB PO PRN (13:17)
[2022-08-14] MEDS ORDERED: ACETAMINOPHEN 325 MG TABLET PO PRN (13:17)
[2022-08-14] MEDS ORDERED: ONDANSETRON 4 MG/2 ML VIAL IV PRN (13:20)
[2022-08-14] MEDS: ALBUTEROL 2.5 MG/3 ML NEB SOL NEB SCH ×2 (14:00→20:00)
[2022-08-14] MEDS: IPRATROPIUM BROM 0.5MG/2.5ML NEB SCH ×2 (14:00→20:00)
--- NOTE | 2022-08-14 16:09 | P.HP ---
Certification for Inpatient Patient admitted to: Observation With expected LOS: <2 Midnights Patient will require the following post-hospital care: None Practitioner: I am a practitioner with admitting privileges, knowledge of patient current condition, hospital course, and medical plan of care. Services: Services provided to patient in accordance with Admission requirements found in Title 42 Section 412.3 of the Code of Federal Regulations Patient History Date of Service: 08/14/22 Reason for admission: SOB History of Present Illness: Patient is a 72-year-old male with a past medical history significant for CVA, GERD, schizophrenia, dementia, depression, seizure, TBI, hypothyroidism who presents with complaint of shortness of breath. [facility] a [facility]. Patient alert and oriented x1. Patient is confused and unable to provide any history. shelter staff noted that patient was having shortness of breath and his O2 sat was in the 80s. No other signs or symptoms reported. Symptoms are aggravated or relieved by nothing. Patient was sent to the ER for medical evaluation. Of note, patient was noted to have diarrhea x2 in the ER as well as episodes of coughing. - Past Medical/Surgical History -: CVA -: GERD -: Schizophrenia -: Dementia -: Depression -: Seizures -: TBI -: Hypothyroidism. Past Surgical History: Reviewed- Non-Contributory - Family History Family History: Reviewed- Non-Contributory - Social History Smoking Status: Unknown if ever smoked Alcohol use: No CD- Drugs: No Place of Residence: Longterm Review of Systems is unable to be obtained (Patient is confused.) Physical Examination - Physical Exam General: Alert, In no apparent distress, Oriented x1, Demented, Confused HEENT: Atraumatic, PERRLA, Mucous membr. moist/pink, EOMI, Sclerae nonicteric Neck: Supple, 2+ carotid pulse no bruit, No LAD, Without JVD or thyroid abnormality Respiratory: Diminished Cardiovascular: No edema, Regular rate/rhythm, Normal S1 S2 Capillary refill: <2 Seconds Gastrointestinal: Normal bowel sounds, Soft and benign, Non-distended, No tenderness Musculoskeletal: No clubbing, No swelling, No contractures, No tenderness Integumentary: No rashes, No tenderness/swelling, No erythema Neurological: Normal speech, Normal tone, Normal affect Lymphatics: No axilla or inguinal lymphadenopathy - Studies Laboratory Data (last 24 hrs) 08/14/22 09:57: PT 11.9, INR 1.08, APTT 31.7 08/14/22 09:57: Sodium 149 H, Potassium 3.6, BUN 23 H, Creatinine 1.04, Glucose 106, Total Bilirubin 0.3, AST 26, ALT 27, Alkaline Phosphatase 41 L 08/14/22 09:57: WBC 6.30, Hgb 12.3 L D, Hct 36.8 L, Plt Count 193 Assessment and Plan - Plan --Acute COPD exacerbation. Mild COPD noted on imaging. Patient placed on steroids, neb treatment with albuterol\Atrovent and O2 therapy. Continue supportive care. --UTI POA. Continue antibiotics. Urine cultures pending. --Anemia of chronic disease. H&H stable. We will continue to monitor hemoglobin and transfuse if less than 7.0. --CKD 2. Stable. We will continue to monitor renal functions. -- History of CVA. Continue aspirin. --Dementia. Patient at baseline. Continue supportive care. --GERD. Patient placed on Protonix. --Depression\history of schizophrenia. Continue home medications. --History of TBI. Continue supportive care. --History of seizures. Seizure precautions. Continue home medication. --Hypothyroidism. Continue home medication. --Diarrhea. Stool studies pending to rule out any infectious process. Continue supportive care. --Hypernatremia. Repeat BMP pending. Treatment based on results. Continue supportive care. --DVT prophylaxis with Lovenox subQ. Discharge Plan: Home Plan to discharge in: 48 Hours - Advance Directives Does patient have a Living Will: No Does patient have a Durable POA for Healthcare: No - Code Status/Comfort Care Code Status Assessed: Yes Physician Review: Patient Assessed, Agree with Above Assessment and Plan Critical Care: No
[2022-08-14] MEDS ORDERED: SODIUM CHLORIDE 0.9% 10ML INJ IV PRN (16:22)
[2022-08-14] MEDS ORDERED: PANTOPRAZOLE 40 MG INJ IVP SCH (17:30)
[2022-08-14 17:46] LABS: Potassium 3.6 mmol/L (3.5-5.1)
[2022-08-14 17:57] LABS: Magnesium 2.3 mg/dL (1.6-2.4); Phosphorus 2.9 mg/dL (2.5-4.9); Thyroid Stimulating Hormone 2.19 uIU/mL (0.358-3.740)
[2022-08-14] MEDS: ENOXAPARIN 40 MG/0.4 ML SQ SCH (18:44)
[2022-08-14] MEDS: ASPIRIN 81 MG CHEWABLE TABLET PO SCH (18:45)
[2022-08-14] MEDS: METHYLPREDNISOLONE 40 MG INJ IV SCH (18:45)
[2022-08-14 23:26] VITALS: BMI 27.4
[2022-08-15] MEDS: METHYLPREDNISOLONE 40 MG INJ IV SCH ×3 (00:45→16:34)
[2022-08-15] MEDS: IPRATROPIUM BROM 0.5MG/2.5ML NEB SCH ×4 (01:50→19:40)
[2022-08-15] MEDS: ALBUTEROL 2.5 MG/3 ML NEB SOL NEB SCH ×4 (01:50→19:40)
[2022-08-15 03:59] LABS: Absolute Lymphocytes (CBC) 0.7 K/uL (0.7-4.9); Hematocrit 35.6 % (39.6-49.0); Lymphocytes % 10.8 % (15.3-44.8); MCV 89.2 fL (80-100); MPV 7.6 fL (7.6-11.3); RBC Red Blood Cell Count 3.99 M/uL (4.33-5.43)
[2022-08-15 04:17] LABS: Potassium 4.2 mmol/L (3.5-5.1)
--- NOTE | 2022-08-15 07:08 | P.PN ---
Date of Service: 08/15/22 Subjective: states he feels "ok", not elaborating only stating a few words and hsi name ROS: A complete review of systems was performed and is negative except as mentioned above Physical Exam: Gen: NAD, AOx1 HEENT: normal conjunctiva, sclera anicteric CV: regular rate & rhythm, no edema Pulm: non-labored respirations, diminished bilaterally with [place], on 4L NC Abd: soft, non-tender, non-distended Neuro: weak speech, oriented x, confused/dementia; generalized weakness vitals reviewed Problem List acute hypoxemic respiratory failure secondary to acute on chronic copd exacerbation UTI, present on admission anemia of chronic diseasxe CKD2 h/o CVA CKD2 Dementia h/o CVA GERD h/o TBI h/o Seizures Hypothyroidism Hypernatremia CTA negative for pneumonia, no PE mild COPD changes noted on CT; pt short of breath, with wheeze on exam continue COPD treatment - nebs, O2, azithro continue home meds -aspirin, keppra, synthroid repeat labs in AM UA with pyuria/bacteruria; urine culture pending continue empiric rocephin blood cultures: 07/19 with [facility]; pending repeat blood cultures suspect contaminant VTE: lovenox Code: full Dispo: back to shelter, ~2-3 days
[2022-08-15] MEDS ORDERED: SODIUM CHLORIDE 0.9% 10ML INJ IV PRN (08:08)
[2022-08-15] MEDS: levETIRAcetam 500 MG TAB PO SCH ×2 (08:49→22:08)
[2022-08-15] MEDS: ASPIRIN 81 MG CHEWABLE TABLET PO SCH (08:49)
[2022-08-15] MEDS: ENOXAPARIN 40 MG/0.4 ML SQ SCH (08:49)
[2022-08-15] MEDS: CEFTRIAXONE 1,000 MG in NA CHLORIDE 0.9% 50 ML IVPB SCH (08:50)
[2022-08-15] MEDS: PANTOPRAZOLE 40MG TABLET PO SCH (09:03)
[2022-08-15] MEDS ORDERED: VANCOMYCIN 2 GM in NA CHLORIDE 0.9% 500 ML IVPB ONE (11:00)
--- NOTE | 2022-08-15 16:59 | EKG ---
Test Date: 2022-08-14 Test Time: 09:55:14 Room Service Food Server: CM MEASUREMENT RESULTS: Intervals: Rate: 66 NH: 128 QRSD: 82 QT: 452 QTc: 473 [place]: P: 43 NH: 128 QRS: 74 T: 60 INTERPRETIVE STATEMENTS: Normal sinus rhythm Normal ECG No previous ECG available for comparison Electronically Signed On 08-15-22 16:55:10 PLANT QUALITY MANAGER by Jose Banks
[2022-08-15] MEDS: MONTELUKAST 10 MG TAB PO SCH (22:04)
[2022-08-15] MEDS: RISPERIDONE 0.25 MG TABLET PO SCH (22:04)
[2022-08-16] MEDS: METHYLPREDNISOLONE 40 MG INJ IV SCH ×3 (01:05→16:17)
[2022-08-16] MEDS: ALBUTEROL 2.5 MG/3 ML NEB SOL NEB SCH ×4 (02:20→20:20)
[2022-08-16] MEDS: IPRATROPIUM BROM 0.5MG/2.5ML NEB SCH ×4 (02:20→20:20)
[2022-08-16 03:49] LABS: Absolute Lymphocytes (CBC) 0.6 K/uL (0.7-4.9); Lymphocytes % 6.1 % (15.3-44.8); MCV 88.5 fL (80-100); MPV 7.7 fL (7.6-11.3); RBC Red Blood Cell Count 3.73 M/uL (4.33-5.43)
[2022-08-16 04:00] LABS: Magnesium 2.5 mg/dL (1.6-2.4); Potassium 3.9 mmol/L (3.5-5.1)
[2022-08-16] MEDS: PANTOPRAZOLE 40MG TABLET PO SCH (05:46)
[2022-08-16] MEDS: LEVOTHYROXINE SOD 0.05 MG TABLET PO SCH (05:46)
--- NOTE | 2022-08-16 07:22 | P.PN ---
Date of Service: 08/16/22 Subjective: more alert/awake states he feels good and wants to go home afebrile on oxygen supplementation, improving ROS: A complete review of systems was performed and is negative except as mentioned above Physical Exam: Gen: NAD, AOx1 HEENT: normal conjunctiva, sclera anicteric CV: regular rate & rhythm, no edema Pulm: non-labored respirations, diminished bilaterally with wheeze, on 2L NC Abd: soft, non-tender, non-distended Neuro: weak speech, oriented x1, confused/dementia; generalized weakness vitals reviewed Problem List acute hypoxemic respiratory failure secondary to acute on chronic copd exacerbation UTI, present on admission anemia of chronic disease CKD2 Dementia GERD h/o CVA h/o TBI h/o Seizures Hypothyroidism Hypernatremia CTA negative for pneumonia, no PE mild COPD changes noted on CT; pt short of breath, with wheeze on exam continue COPD treatment - nebs, O2, azithro, steroids pulm consulted continue home meds -aspirin, keppra, synthroid UA with pyuria/bacteruria; urine culture pending unable to get accurate history continue empiric rocephin f/u culture blood cultures: 07/19 with [facility]; pending repeat blood culture without growth suspect contaminant no other obvious source of infection VTE: lovenox Code: full [facility]po[facility], ~1-2 days
[2022-08-16] MEDS ORDERED: CEFTRIAXONE 1000 MG/VIAL ONE (07:39)
[2022-08-16] MEDS ORDERED: NA CHLORIDE 0.9% 50 ML ONE (07:40)
[2022-08-16] MEDS: CEFTRIAXONE 1,000 MG in NA CHLORIDE 0.9% 50 ML IVPB SCH (08:05)
[2022-08-16] MEDS: levETIRAcetam 500 MG TAB PO SCH ×2 (08:07→20:56)
[2022-08-16] MEDS: ENOXAPARIN 40 MG/0.4 ML SQ SCH (08:07)
[2022-08-16] MEDS: ASPIRIN 81 MG CHEWABLE TABLET PO SCH (08:08)
[2022-08-16] MEDS ORDERED: VANCOMYCIN 1.75 GM in NA CHLORIDE 0.9% 500 ML IVPB SCH (11:00)
--- NOTE | 2022-08-16 15:57 | P.CNS ---
Date of Consult: 08/16/22 Chief Complaint: SOB History of Present Illness: Age 72 multiple med prob,s aw SOB Pt non verbal, [place] resident. Low sat's. Stable Allergies oxcarbazepine [From Trileptal] Allergy (Verified 08/14/22 19:33) Hives/Rash Home Medications: Lactulose [Cephulac*] 20 gm PO DAILY 08/15/22 Levothyroxine [Synthroid*] 50 mcg PO [id number] 08/15/22 Montelukast [Singulair*] 10 mg PO BEDTIME 08/15/22 Omeprazole 20 mg PO DAILY 08/15/22 Risperidone [Risperdal] 0.25 mg PO BEDTIME 08/15/22 levETIRAcetam [Keppra*] 1,500 mg PO Q12H 08/15/22 Cefdinir [Cefdinir*] 300 mg PO BID 5 Days #10 cap 08/17/22 predniSONE [Prednisone*] 20 mg PO BID 4 Days #8 tab 08/17/22 - Past Medical/Surgical History -: CVA -: GERD -: Schizophrenia -: Dementia -: Depression -: Seizures -: TBI -: Hypothyroidism. - Social History Alcohol use: No CD- Drugs: No Place of Residence: [facility] Review of Systems is unable to be obtained Physical Examination Temp Pulse Resp BP Pulse Ox 97.8 F 67 16 135/62 91 08/16/22 11:48 08/16/22 13:55 08/16/22 11:48 08/16/22 13:55 08/16/22 11:48 General: Alert, Unresponsive Respiratory: Clear to auscultation bilaterally, Diminished Cardiovascular: Edema Gastrointestinal: Normal bowel sounds, Soft and benign Musculoskeletal: No clubbing, No swelling Laboratory Data (last 24 hrs) 08/16/22 03:27: Sodium 144, Potassium 3.9, BUN 29 H, Creatinine 0.81, Glucose 149 H, Magnesium 2.5 H 08/16/22 03:27: WBC 10.20, Hgb 11.2 L, Hct 33.0 L, Plt Count 204 - Problems (1) Respiratory distress Current Visit: Yes Status: Acute Plan: Patient is 72 years of age a residential resident admitted with their respiratory distressI suspect that is due to underlying COPD there is no evidence of sepsis or pulmonary embolismI suspect that is due to underlying COPD there is no evidence of sepsis or pulmonary embolism
[2022-08-16] MEDS: MONTELUKAST 10 MG TAB PO SCH (20:56)
[2022-08-16] MEDS: RISPERIDONE 0.25 MG TABLET PO SCH (20:57)
[2022-08-17] MEDS: METHYLPREDNISOLONE 40 MG INJ IV SCH (00:34)
[2022-08-17] MEDS: IPRATROPIUM BROM 0.5MG/2.5ML NEB SCH ×4 (01:30→19:30)
[2022-08-17] MEDS: ALBUTEROL 2.5 MG/3 ML NEB SOL NEB SCH ×4 (01:30→19:30)
[2022-08-17 03:25] LABS: Absolute Lymphocytes (CBC) 0.6 K/uL (0.7-4.9); Hematocrit 33.8 % (39.6-49.0); Lymphocytes % 7.9 % (15.3-44.8); MCV 89.3 fL (80-100); RBC Red Blood Cell Count 3.78 M/uL (4.33-5.43)
[2022-08-17 03:36] LABS: Magnesium 2.3 mg/dL (1.6-2.4); Potassium 3.8 mmol/L (3.5-5.1)
[2022-08-17] MEDS ORDERED: POTASSIUM 25 MEQ EFFERV TAB PO ONE (05:02)
[2022-08-17] MEDS: LEVOTHYROXINE SOD 0.05 MG TABLET PO SCH (05:50)
[2022-08-17] MEDS: PANTOPRAZOLE 40MG TABLET PO SCH (05:50)
[2022-08-17] MEDS: CEFTRIAXONE 1,000 MG in NA CHLORIDE 0.9% 50 ML IVPB SCH (08:14)
[2022-08-17] MEDS: ASPIRIN 81 MG CHEWABLE TABLET PO SCH (08:46)
[2022-08-17] MEDS: levETIRAcetam 500 MG TAB PO SCH (08:46)
[2022-08-17] MEDS: ENOXAPARIN 40 MG/0.4 ML SQ SCH (08:46)
[2022-08-17] MEDS ORDERED: predniSONE 20 MG TAB PO SCH (09:00)
[2022-08-17 12:13] VITALS: BP 136/64; TEMP 97.4
--- NOTE | 2022-08-17 13:23 | P.PN ---
Subjective Date of Service: 08/17/22 Chief Complaint: SOB Physical Examination - Vital Signs Temperature: 97.4 F Blood Pressure: 136/64 Pulse: 58 Respirations: 16 Pulse Ox (%): 96 - Studies Microbiology Data (last 24 hrs): 08/14/22 09:50 Catheterized Urine [place] Count - Final No growth. 08/14/22 09:50 Catheterized Urine - Final No growth. 08/14/22 09:51 Blood - Blood Gram Stain - Final Assessment And Plan Physician Review: Patient Assessed, Agree with Above Assessment and Plan
[2022-08-17 21:11] VITALS: O2SAT 97
--- NOTE | 2022-08-20 21:46 | P.DS ---
Admission Date: 08/16/22 Discharge Date: 08/17/22 Disposition: TRANSFER TO SNF - MEDICAL Discharge Condition: GOOD Reason for Admission: SOB Consultations: Pulmonology - Dr. Barba Brief History of Present Illness: 72-year-old male with a past medical history significant for CVA, GERD, schizophrenia, dementia, depression, seizure, TBI, hypothyroidism who presents with complaint of shortness of breath. Patient is a resident of a shelter. Patient alert and oriented x1. Patient is confused and unable to provide any history. [facility] staff noted that patient was having shortness of breath and his O2 sat was in the 80s. No other signs or symptoms reported. Symptoms are aggravated or relieved by nothing. Patient was sent to the ER for medical evaluation. Hospital Course: Problem List acute hypoxemic respiratory failure secondary to acute on chronic copd exacerbation UTI, present on admission anemia of chronic disease CKD2 Dementia GERD h/o CVA h/o TBI h/o Seizures Hypothyroidism Hypernatremia Patient presented with altered mentation inna shortness of breath / hypoxia. He was noted to have signs of possible UTI on urinalysis and exam findings consistent with COPD exacerbation. He was empirically treated with IV rocephin to cover for UTI and possibly pneumonia. CTA chest negative for any other acute process. No PE, no pericardial/pleural fluid, no mass, no infectious findings. He had improvement /resolution of his symptoms. He was weaned down to 1-2 L nasal cannula and seemed to be back to his reported baseline. He remained afebrile and without leukocytosis. Urine culture was negative. Blood culture grew 1/4 coag negative staph which is considered a contamination, as patient does not have a clear source for this to be a true infectious cause. Discharged back to shelter, with 4 more days of prednisone, and 5 more days of empiric antibiotics - cefdinir. To complete 7 days total. Although cultures negative, unable to get reliable history and review of symptoms from the patient. Given his improvement, will complete 1 week course of antibiotic. Vital Signs/Physical Exam: Temp Pulse Resp BP Pulse Ox 97.4 F 58 16 136/64 96 08/17/22 12:00 08/17/22 12:00 08/17/22 12:00 08/17/22 12:00 08/17/22 12:00 Physical Exam: Gen: NAD, AOx1 HEENT: normal conjunctiva, sclera anicteric CV: regular rate & rhythm, no edema Pulm: non-labored respirations, diminished breath sounds bilaterally Abd: soft, non-tender, non-distended Neuro: weak speech, oriented x1, generalized weakness Laboratory Data at Discharge: WBC 7.70 K/uL (4.3-10.9) 08/17/22 02:36 Hgb 11.3 g/dL (13.6-17.9) L 08/17/22 02:36 Hct 33.8 % (39.6-49.0) L 08/17/22 02:36 Plt Count 199 K/uL (152-406) 08/17/22 02:36 PT 11.9 SECONDS (9.5-12.5) 08/14/22 09:57 INR 1.08 08/14/22 09:57 APTT 31.7 SECONDS (24.3-36.9) 08/14/22 09:57 Sodium 144 mmol/L (136-145) 08/17/22 02:36 Potassium 3.8 mmol/L (3.5-5.1) 08/17/22 02:36 BUN 29 mg/dL (7-18) H 08/17/22 02:36 Creatinine 0.81 mg/dL (0.70-1.30) 08/17/22 02:36 Glucose 153 mg/dL (74-106) H 08/17/22 02:36 Phosphorus 2.9 mg/dL (2.5-4.9) 08/14/22 17:23 Magnesium 2.3 mg/dL (1.6-2.4) 08/17/22 02:36 Total Bilirubin 0.3 mg/dL (0.2-1.0) 08/14/22 09:57 AST 26 U/L (15-37) 08/14/22 09:57 ALT 27 U/L (16-61) 08/14/22 09:57 Alkaline Phosphatase 41 U/L (45-117) L 08/14/22 09:57 Home Medications: Lactulose [Cephulac*] 20 gm PO DAILY 08/15/22 Levothyroxine [Synthroid*] 50 mcg PO [id number] 08/15/22 Montelukast [Singulair*] 10 mg PO BEDTIME 08/15/22 Omeprazole 20 mg PO DAILY 08/15/22 Risperidone [Risperdal] 0.25 mg PO BEDTIME 08/15/22 levETIRAcetam [Keppra*] 1,500 mg PO Q12H 08/15/22 Cefdinir [Cefdinir*] 300 mg PO BID 5 Days #10 cap 08/17/22 predniSONE [Prednisone*] 20 mg PO BID 4 Days #8 tab 08/17/22 New Medications: Cefdinir [Cefdinir*] 300 mg PO BID 5 Days #10 cap predniSONE [Prednisone*] 20 mg PO BID 4 Days #8 tab Physician Discharge Instructions: Patient presented with altered mentation inna shortness of breath / hypoxia. He was noted to have signs of possible UTI on urinalysis and exam findings consistent with COPD exacerbation. He was empirically treated with IV rocephin to cover for UTI and possibly pneumonia. CTA chest negative for any other acute process. No PE, no pericardial/pleural fluid, no mass, no infectious findings. He had improvement /resolution of his symptoms. He was weaned down to 1-2 L nasal cannula and seemed to be back to his reported baseline. He remained afebrile and without leukocytosis. Urine culture was negative. Blood culture grew 1/4 coag negative staph which is considered a contamination, as patient does not have a clear source for this to be a true infectious cause. Discharged back to shelter, with 4 more days of prednisone, and 5 more days of empiric antibiotics - cefdinir. To complete 7 days total. Although cultures negative, unable to get reliable history and review of symptoms from the patient. Given his improvement, will complete 1 week course of antibiotic. Followup: Nay Brower MD [Primary Care Provider] - Time spent managing pt's care (in minutes): 45
== END 2022-08-17 20:11 | DRG 689 ==
LOC: ER 09:29 → ERHOLD 13:15 → 4TH 18:24 → OBSVTOIN 08-16 13:36
PROVIDERS: ADMIT Internal Medicine; ATTEND Hospitalist
DX: N39.0 Urinary tract infection, site not specified (principal); J96.01 Acute respiratory failure with hypoxia; J44.1 Chronic obstructive pulmonary disease with (acute) exacerbation; E87.0 Hyperosmolality and hypernatremia; K21.9 Gastro-esophageal reflux disease without esophagitis; E03.9 Hypothyroidism, unspecified; D63.8 Anemia in other chronic diseases classified elsewhere; N18.2 Chronic kidney disease, stage 2 (mild); F32.A Depression, unspecified; F03.90 Unspecified dementia, unspecified severity, without behavioral disturbance, psychotic disturbance, mood disturbance, and anxiety; Z88.8 Allergy status to other drugs, medicaments and biological substances; Z79.82 Long term (current) use of aspirin; Z86.73 Personal history of transient ischemic attack (TIA), and cerebral infarction without residual deficits; Z79.899 Other long term (current) drug therapy; Z79.890 Hormone replacement therapy; Z20.822 Contact with and (suspected) exposure to COVID-19
CPT/HCPCS: 0240U; 36415; 71045; 71275; 80048; 80053; 81003; 81015; 82947; 83605; 83735; 84100; 84439; 84443; 85025; 85610; 85730; 87040; 87077; 87086; 87088; 87186; 87205; 93005; 94640; 96374; 99285; C9113; G0378; J1650; J2920; J3370; J7040; J7512; J7613; J7614; J7644; Q9967